=== PATIENT | male | born 2000 | race Two or more races ===

== ENCOUNTER 2022-04-25 11:08 | Outpatient (CLI) | payer OTHER ==
[2022-04-25 12:17] VITALS: BP 128/77
--- NOTE | 2022-04-25 12:17 | SLEEP CARE CONSULTATION ---
Information from patient questionnaire entered by Delicia Disla MA. I have reviewed and concur with the information entered by Delicia Disla MA. This document represents the service I personally performed and the decisions made by , Lary Dickerson ARNP. History of Present Illness Service Date and Time: 04/25/2022 1108 Reason for Visit: New patient (ONSET 10/07/2016, NO PRIORS,) Chief Complaint: reports: Insomnia, Unrefreshed sleep, Snoring, Observed pauses in breathing, Fatigue, Frequent awakenings at night Date of Onset: 2 YEARS AGO Usual bedtime: 0330 Time it takes to fall asleep: 30 - 1 HOUR Snores at night: Yes Observed to quit breathing while asleep: Yes Sleeps alone due to snoring: No Number of times waking at night: 1-2 Reasons for waking at night: reports: Gasping for air. denies: Choking, Snoring Toss, Turn, or Twitch while sleeping: Yes Recalls having dreams: No Usually gets out of bed at: 1100-NOON Feels refreshed in the morning: No Morning headache: Yes (every other day, groggy; last 1-1.5 hours) Sleepy or fatigued during the day: Yes Ever fallen asleep while driving: No Takes day naps: No Dreams during day naps: No Prior sleep studies: No Additional HPI information: I had the pleasure of seeing KIERAN BARTH today regarding the possibility of him having a sleep disorder. His current complaints are insomnia, snoring, unrefreshed sleep, observed pauses in breathing, fatigue and frequent night awakenings. 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 He was having a hard time falling asleep and would some times not sleep for a day or more. Since then his sleep schedule is still varied from 8 hour shifts to 12 hours shifts or more. He switches from days to nights. His roommates have told him that he snores loudly. His girlfriend has noted with occasional gasping/choking sounds while he is sleeping. He did wake up once where he sat up in bed and felt like he could not breathe, it cleared up quickly. - Parasomnia Symptoms Ever been unable to move upon waking from sleep: Yes (not frequent) Walks in sleep: No Talks in sleep: Yes (makes garbled noises, no words) Ever acted out dreams in sleep: No Ever felt weak in the knees when startled or emotional: No Bothered by creepy, crawly, restless sensations in legs: No Problems with memory or concentration: No Subjective Initial Cisne Sleepiness Scale score: 12 (04/25/2022) Past Medical History Past Medical History: reports: Other (enlarged heart vessel when about 11 yrs old, thoroughly checkd and monitored until resolved) Social History The patient's occupation is a AM. Patient is Single and lives in . Have you smoked in the past 12 months: Yes (smokes 1-2 cigarettes a month on average) Alcohol use: Yes Alcohol amount and frequency: 2-3 X WEEKLY Caffeine use: Yes Caffeine amount and frequency: 1 X DAILY Family History Family history of sleep disordered breathing: No Family Hx Sleep Apnea: Sibling: Snoring Allergies and Home Medications Known drug allergies: No Drug allergies reviewed: Yes (NKDA) Home medication list reviewed: Yes (no daily medications) Review of Systems Weight gain over past 5 years: 15 lbs Cardiovascular: reports: chest pain (pressures on chest almost every day) Respiratory: reports: shortness of breath Gastrointestinal: reports: heartburn Neurological: reports: headaches, head trauma (mild concussion after slip/fall 18 yo) Psychiatric: denies: anxiety, depression Ear/Nose/Throat: reports: nasal congestion, sinus problems, nose bleeds, dry mouth/throat. denies: tonsillectomy, wisdom teeth removed Musculoskeletal: reports: back pain Immunologic: denies: allergies to food or environment Physical Exam Vital signs obtained and entered by: Justine DISLA CMA AAHI Blood Pressure: 128/77 (RESP 20, PULSE 56, LEFT) Cuff size: wrist Heart Rate: 58 O2 Saturation: 98 (PAPER MASK) Height: 5 ft 3 in Weight: 180 lb (CLOTHES) Weight change since last visit: LOSE - GYM Body Mass Index: 31.8 BMI Classification: Obese Neck circumference: 15 (INCHES) Mouth and throat: narrow oropharynx Soft palate: normal Hard palate: normal Uvula: long Uvula visualization: 25% Mallampati Class III Tongue: enlarged in size with teeth romero on lateral edges Tonsils: 3+/kissing (on left) Neck: normal w/o lymphadenopathy or thyromegaly Heart: regular rate and rhythm Lungs: clear bilaterally Impression and Plan 1. Suspected Obstructive Sleep Apnea-Hypopnea Syndrome, as suggested by a history of loud and irregular snoring, observed cessation of breath while asleep, gasping or choking in sleep, morning headache, unrefreshed sleep, and excessive daytime sleepiness. Narrow oropharynx and obesity are common predisposing factors for obstructive sleep apnea-hypopnea syndrome. I recommend proceeding to polysomnography to confirm the diagnosis and to assess severity. If the patient has significant sleep disordered breathing, a manual CPAP titration study will also be performed to find the optimal treatment pressure. I informed the patient of what the sleep studies involve and after some discussion, obtained agreement to proceed. The pathophysiology of obstructive sleep apnea-hypopnea syndrome was discussed with the patient and health risks of cardiovascular and cerebrovascular disease if not treated. Risks of drowsy driving discussed in detail and patient advised to avoid long distance driving and to side puller at the first sign of drowsiness. Patient agreed to plan. * Schedule polysomnography * Avoid long distance driving or driving when feeling sleepy. * Avoid alcohol, sedative and muscle relaxant around bedtime. * Attempt to lose weight. * Review instructions provided by trained office staff on how to prepare for the sleep study. * Return for follow-up after sleep study completed. Counseling Topics: Weight loss health impact Visit Type: In Office Time Spent with Patient (minutes): 44 Provider Statement: I spent 100% of the Face to Face Visit with the patient with greater than 50% spent counseling the patient and coordination of care.
== END 2022-04-25 11:09 | disposition home or self-care (01) ==
LOC: SC 11:08
PROVIDERS: ATTEND Nurse Practitioner Family
DX: R06.83 Snoring (principal); R06.81 Apnea, not elsewhere classified; R51.9 Headache, unspecified; G47.10 Hypersomnia, unspecified; E66.9 Obesity, unspecified; Z68.31 Body mass index [BMI] 31.0-31.9, adult
CPT/HCPCS: 99203; 99212

== ENCOUNTER 2022-06-05 09:33 | Outpatient (CLI) | payer OTHER ==
[2022-06-05 10:01] VITALS: BP 116/76
--- NOTE | 2022-06-05 10:01 | SLEEP CARE CONSULTATION ---
Information from patient questionnaire entered by Delicia Sheriff MA. I have reviewed and concur with the information entered by Delicia Sheriff MA. This document represents the service I personally performed and the decisions made by Tuan gomez Caren J, ARNP. History of Present Illness Service Date and Time: 06/05/2022 0933 Initial Bronaugh Sleepiness Scale score: 12 (04/25/2022) Current Bronaugh Sleepiness Scale score: 17 (06/05/2022) Additional HPI information: KIERAN BARTH returns for follow up and results of the recently performed home sleep study. The patient was informed of the following findings: No significant sleep disord ered breathing with an average AHI of 4.0 and ildefonso oxygen saturation of 83%. Patient did not sleep supine during the study. I explained the pathophysiology behind obstructive sleep apnea. Patient does not have sleep apnea and was advised how weight gain could increase the risk of developing sleep apnea in the future. Sleep Study - Results Type of Sleep Study: Home sleep study (F/U HST, 05/08/2022 [facility], [place],) Prior sleep studies: No Polysomnography/Home Sleep Study results: Physician Impression: The quality of the study is good. The length of the study is adequate (> 240 minutes). Please also see the tabulated and graphic data. 1. Obstructive Sleep Apnea-Hypopnea (ICD-10 G47.33), none, with an AHI of 4.0/hr and ildefonso SaO2 of 83%. During the study, the patient had 12 apneas (11 obstructive, 0 central, 1 mixed) and 16 hypopneas. The longest episode lasted 76.5 seconds. The patient did not sleep supine during this study. 2. Hypoxemia (ICD-10 R09.02), minimal, with the lowest oxygen saturation of 83 % and 0.9 minutes with SaO2 under 90%. Baseline oxygen saturation was normal (Average oxygen saturation was 96%). Allergies and Home Medications Known drug allergies: No (NKA) Drug allergies reviewed: Yes Home medication list reviewed: Yes (no changes) Allergy and home medication list: NKA VERIFIED BY ALEX CM 06/05/2022 9030 Review of Systems Review of systems same as previous: Yes (no changes) Physical Exam Vital signs obtained and entered by: L. Sharita, [employer] AAMA Blood Pressure: 116/76 (R 16, P 49, RIGHT) Cuff size: wrist Heart Rate: 51 O2 Saturation: 98 Height: 5 ft 3 in Weight: 170 lb (CLOTHES) Body Mass Index: 30.1 BMI Classification: Obese Impression and Plan 1. Suspected Obstructive Sleep Apnea-Hypopnea Syndrome, as suggested by a history of loud and irregular snoring, observed cessation of breath while asleep, gasping or choking in sleep, morning headache, frequent awakening during the night, unrefreshed sleep, cognitive impairment, and excessive daytime sleepiness. I recommend proceeding to polysomnography to confirm the diagnosis and to assess severity. If the patient has significant sleep disordered breathing, a manual CPAP titration study will also be performed to find the optimal treatment pressure. I informed the patient of what the sleep studies involve and after so me discussion, obtained agreement to proceed. The pathophysiology of obstructive sleep apnea-hypopnea syndrome was discussed with the patient and health risks of cardiovascular and cerebrovascular disease if not treated. Risks of drowsy driving discussed in detail and patient advised to avoid long distance driving and to caul fat puller at the first sign of drowsiness. Patient agreed to plan. * Schedule polysomnography * Avoid long distance driving or driving when feeling sleepy. * Avoid alcohol, sedative and muscle relaxant around bedtime. * Attempt to lose weight. * Review instructions provided by trained office staff on how to prepare for the sleep study. * Return for follow-up after sleep study completed. Counseling Topics: Weight loss health impact Visit Type: In Office Time Spent with Patient (minutes): 16 Provider Statement: I spent 100% of the Face to Face Visit with the patient with greater than 50% spent counseling the patient and coordination of care.
== END 2022-06-05 09:34 | disposition home or self-care (01) ==
LOC: SC 09:33
PROVIDERS: ATTEND Nurse Practitioner Family
DX: R06.83 Snoring (principal); G47.8 Other sleep disorders; R06.81 Apnea, not elsewhere classified; R51.9 Headache, unspecified; G47.10 Hypersomnia, unspecified; E66.9 Obesity, unspecified; Z68.30 Body mass index [BMI] 30.0-30.9, adult
CPT/HCPCS: 99212

== ENCOUNTER 2022-06-07 19:52 | Outpatient (CLI) | payer OTHER | END 2022-06-07 19:53 | disposition home or self-care (01) | LOC: SC 19:52 | PROVIDERS: ATTEND Nurse Practitioner Family | DX: G47.33 Obstructive sleep apnea (adult) (pediatric) (principal); Z68.31 Body mass index [BMI] 31.0-31.9, adult | CPT/HCPCS: 95810 ==

== ENCOUNTER 2022-06-24 23:41 | Emergency (ER) | payer OTHER ==
[2022-06-24 23:55] VITALS: BP 133/90
[2022-06-25] MEDS ORDERED: HYDROcod/ACETAM 5/325 MG TABLET ONE (02:10)
[2022-06-25] MEDS ORDERED: HYDROcod/ACET 5/325 Prepack 4 PO ONE (02:33)
--- NOTE | 2022-06-25 03:52 | ED Physician Documentation ---
PD HPI BACK PAIN - Stated complaint Stated Complaint: BACK PX - Chief complaint Chief Complaint: Back Pain - History obtained from History obtained from: Patient - History of Present Illness Timing - onset: How many days ago (3) Timing - duration: Days (3) Timing - details: Abrupt onset, Still present Location: Lower (sacral and tailbone area. Not in lumbar.), Right, Left Quality: Pain, Aching Associated symptoms: Incontinent of urine. No: Fever, Weakness, Numbness Improves with: Position (sitting on one butttock side.) Worsened by: Movement, Palpation, Other (sitting) Contributing factors: Trauma (he states slid and fell directly to tailbone area. pain in tailbone with sitting and walking. Also sacral and SI area pain with movment and standing.) Similar symptoms before: Has not had sx before Recently seen: Not recently seen Review of Systems Constitutional: denies: Fever, Chills : reports: Testicular pain (feel pain goes to left testicle at times.). denies: Hematuria, Testicular mass Skin: denies: Abrasion (s), Laceration (s) (s) Neurologic: denies: Focal weakness, Numbness PD PAST MEDICAL HISTORY - Past Medical History Cardiovascular: None Respiratory: None Neuro: None Endocrine/Autoimmune: None - Present Medications Home Medications: Ambulatory Orders Medication Instructions Recorded Confirmed No Known Home Medications 06/24/22 06/24/22 - Allergies Allergies/Adverse Reactions: Allergies Allergy/AdvReac Type Severity Reaction Status Date / Time No Known Drug Allergies Allergy Verified 06/24/22 23:54 PD ED PE NORMAL - Vitals Vital signs reviewed: Yes - General General: Alert and oriented X 3, Well developed/nourished, Other (he is sitting leaning to left gluteal to avoid pressure on tailbone.) - Abdomen Abdomen: Soft, Non tender - Male Male : Other (normal lie and cremaster. testicles symmetric. Mild tender left upper epididymal area without swelling/enlargement. ) - Back Back: Other (no tenderness lumbar area. He is tender in sacral part of pelvis and toward the SI joints, as well as markedly tender at coccygeal area. No swellling nor redness. ) - Derm Derm: Normal color, Warm and dry Results - Vitals Vitals: Vital Signs - 24 hr 06/24/22 23:52 Temperature 36.4 C L Heart Rate 63 Respiratory 18 Rate Blood Pressure 133/90 H O2 Saturation 99 Oxygen O2 Source Room air - Rads (name of study) pelvic CT Radiology: Prelim report reviewed (no fractures), See rad report PD MEDICAL DECISION MAKING - ED course Complexity details: reviewed results, considered differential (he has pain at tailbone but also sacrum and SI area, which would be more concerning as nerve roots from the area. Will get CT to ensure no fx/displacement.), d/w patient Departure - Departure Disposition: 01 Home, Self Care Condition: Stable Record reviewed to determine appropriate education?: Yes Discharge Date/Time: 06/25/22 02:25
--- NOTE | 2022-06-25 04:09 | CT Report ---
PROCEDURE: PELVIS WO INDICATIONS: SACRAL PAIN, FALL TECHNIQUE: Noncontrast 3 mm axial sections acquired through the bony pelvis, with coronal and sagittal reformatt ing. For radiation dose reduction, the following was used: automated exposure control, adjustment of mA and/or kV according to patient size. COMPARISON: None. FINDINGS: Image quality: Excellent. Bones: No fractures or dislocation. No suspicious osseous lesions. Soft tissues: There is mild subcutaneous fat stranding and edema superficial to the sacrum. No discr ete hematoma collections. No intracranial free fluid. The visualized musculature appears preserved. IMPRESSION: 1. No sacral fracture identified. Findings discussed with Dr. Cintron on 06/25/2022 at 2:10 AM. Reviewed by: Landon Gordillo MD on 06/25/2022 4:07 AM PDT Approved by: Landon Gordillo MD on 06/25/2022 4:07 AM PDT Station ID: [id number]
== END 2022-06-25 02:25 | disposition home or self-care (01) ==
LOC: ED 23:41
DX: S30.0XXA Contusion of lower back and pelvis, initial encounter (principal); W01.0XXA Fall on same level from slipping, tripping and stumbling without subsequent striking against object, initial encounter
CPT/HCPCS: 72192; 99282; 99284; A9270

== ENCOUNTER 2022-06-29 11:03 | Outpatient (CLI) | payer OTHER ==
[2022-06-29 11:38] VITALS: BP 118/76
--- NOTE | 2022-06-29 11:38 | SLEEP CARE CONSULTATION ---
Information from patient questionnaire entered by Petey Guzman. I have reviewed and concur with the information entered by Petey Guzman. This document represents the service I personally performed and the decisions made by , Lary Dickerson ARNP. History of Present Illness Service Date and Time: 06/29/2022 1103 Initial Norman Sleepiness Scale score: 12 (04/25/2022) Current Norman Sleepiness Scale score: 16 (06/29/22) Additional HPI information: KIERAN BARTH returns for follow up and results of the recently performed polysomnography. I explained the pathophysiology behind obstructive sleep apnea. We then spent quite a bit of time discussing different treatment options. For mild obstructive sleep apnea, surgery and oral appliance are alternatives to nasal CPAP therapy but in moderate or severe cases, nasal CPAP is the most effective and reliable treatment. Because apnea is primarily in supine position, then positional management therapy could be effective. Methods discussed such as positioning with pillows to prevent supine sleep. I reviewed the impact of weight changes on sleep apnea and strongly recommended losing weight. After some discussion, the patient opted to go with the nasal CPAP therapy. Nasal autoCPAP set at 4-15 cmH20 will be ordered with rationale explained. A manual titration study will be ordered if unable to find optimal pressure with office adjustments. I explained how CPAP machine works and what to expect when using the machine. Using CPAP every night in order to get used to it was emphasized. Patient advised to put CPAP mask on before getting into bed so as not to fall asleep without CPAP. To assist acclimation to CPAP use, it could also be used for a short time during day while reading or watching TV. The patient was instructed to call the CPAP supplier to discuss any mechanical problem that may occur. If the mask given is uncomfortable or is difficult to keep on through the night even with adjustment, contact the CPAP supplier as many will replace with another mask style if notified before 30 days. If snoring or perceives is not getting enough air or too much air from the machine, notify this office. Patient does not drink alcohol. Patient was cautioned about risks of drowsy driving until sleepiness symptoms resolve. Sleep Study - Results Type of Sleep Study: Polysomnography (DONE 06/07/22) Prior sleep studies: No Polysomnography/Home Sleep Study results: IMPRESSION: The quality of the study is good. The patient had normal sleep efficiency. Except for mild sleep fragmentation, the sleep architecture was also normal. Respiratory monitoring showed moderate obstructive sleep apnea-hypopnea (AHI = 17.0) associated with frequent arousals, oxyhemoglobin desaturation and mild hypoxia (ildefonso oxygen saturation of 84%). The respiratory events occurred mainly during sleep study (supine AHI = 18.6; non-supine = 9.20). Snore was light to moderate in intensity. There was no significant periodic leg movement of sleep. Cardiac rhythm was normal sinus rhythm without significant arrhythmia. No abnormal behavior (parasomnia) observed during the night. Allergies and Home Medications Drug allergies reviewed: Yes (NKDA) Home medication list reviewed: Yes (Hydrocodone for pain) Allergy and home medication list: Allergies No Known Drug Allergies Allergy (Verified 06/24/22 23:54) Review of Systems Review of systems same as previous: Yes (pelvic muscle sprain after fall) Physical Exam Vital signs obtained and entered by: ADELINE NICHOLS Blood Pressure: 118/76 (left arm ) Cuff size: regular Heart Rate: 55 O2 Saturation: 98 Height: 5 ft 3 in Weight: 176 lb Body Mass Index: 31.1 BMI Classification: Obese Impression and Plan 1. Obstructive Sleep Apnea-Hypopnea Syndrome, moderate, with lowest oxygen saturation of 84%. Obviously this is the cause of the patients symptoms of unrefreshed sleep, and excessive daytime sleepiness. As mentioned above, the patient will be started on nasal autoCPAP therapy with pressure set at 4-15 cmH2 O. A manual titration study will be completed if unable to find optimal treatment pressure with office adjustments. Compliance guidelines also reviewed. A copy of compliance guidelines will be given for reference at check out. Because the apnea is more severe supine, I instructed to avoid sleeping supine using pillow positioning until able to start CPAP use. * Nasal auto CPAP therapy, pressure at 4-15 cm H2O. * Attempt to lose weight. * Avoid alcohol consumption near bedtime. * Avoid supine sleep until using CPAP. * The patient is again cautioned about driving until sleepiness completely reso lves. * Return one month after CPAP obtained. I will assess response to therapy and compliance at that time. Counseling Topics: Weight loss health impact Visit Type: In Office Time Spent with Patient (minutes): 20 Provider Statement: I spent 100% of the Face to Face Visit with the patient with greater than 50% spent counseling the patient and coordination of care.
== END 2022-06-29 11:04 | disposition home or self-care (01) ==
LOC: SC 11:03
PROVIDERS: ATTEND Nurse Practitioner Family
DX: G47.33 Obstructive sleep apnea (adult) (pediatric) (principal); E66.9 Obesity, unspecified; Z68.31 Body mass index [BMI] 31.0-31.9, adult
CPT/HCPCS: 99212; 99213

== ENCOUNTER 2023-09-18 20:49 | Outpatient (CLI) | payer OTHER | END 2023-09-18 20:50 | disposition critical access hospital (66) | LOC: EMS 20:49 | DX: M54.6 Pain in thoracic spine (principal); M54.50 Low back pain, unspecified; M79.605 Pain in left leg; M79.604 Pain in right leg; R20.2 Paresthesia of skin | CPT/HCPCS: A0425; A0427 ==

== ENCOUNTER 2023-09-18 21:15 | Emergency (ER) | payer OTHER ==
[2023-09-18 21:31] VITALS: O2SAT 99
--- NOTE | 2023-09-18 21:57 | ED Physician Documentation ---
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 patient denies specific trauma. does endorse some numbness earlier to extremities but now resolved. denies saddle anesthesia, weakness, urinary or fecal incontinence or retention PD PAST MEDICAL HISTORY - Past Medical History Past Medical History: Yes Cardiovascular: None Respiratory: None Neuro: None Endocrine/Autoimmune: None GI: None : None HEENT: None Psych: None Musculoskeletal: Chronic back pain Derm: None - Past Surgical History Past Surgical History: Yes Ortho: Other - Present Medications Home Medications: Ambulatory Orders Medication Instructions Recorded Confirmed No Known Home Medications 06/24/22 09/18/23 - Allergies Allergies/Adverse Reactions: Allergies Allergy/AdvReac Type Severity Reaction Status Date / Time No Known Drug Allergies Allergy Verified 09/18/23 21:26 - Social History Does the pt smoke?: No Smoking Status: Never smoker Does the pt drink ETOH?: No Does the pt have substance abuse?: No - Immunizations Immunizations are current?: Yes - POLST Patient has POLST: No PD ED PE NORMAL - Vitals Vital signs reviewed: Yes - General General: Alert and oriented X 3, No acute distress, Well developed/nourished - HEENT HEENT: Atraumatic, PERRL, EOMI - Neck Neck: No bony TTP - Back Back: No spinal TTP, Other (BL paraspinal muscles discomfort to palpation) - Extremities Extremities: Other (BL knees discomfort to palpation and discomfort with rom. FROM at BL hips and knees. csm intact BL LE) - Neuro Neuro: No motor deficit, No sensory deficit Results - Vitals Vitals: Vital Signs - 24 hr 09/18/23 21:22 Temperature 36.4 C L Heart Rate 63 Respiratory 17 Rate Blood Pressure 136/82 H O2 Saturation 99 Oxygen O2 Source Room air PD Medical Decision Making - ED course ED course: 23yM with pmh chronic back pain presents with back pain, hip, and knee pain today without red flag signs for spinal cord impingement. likely muscle strain. work note provided per request and patient will f/u with pcm. return precautions given. Departure - Departure Disposition: 01 Home, Self Care Clinical Impression: Chronic back pain, Knee pain, Hip pain Condition: Stable Instructions: ED Back Care Tips Comments: You were seen in the emergency department for back pain, knee pain and hip pain. Please follow-up with your primary care provider and return to the emergency department if you have any new or worsening symptoms or other concerns. Forms: PCP List, Activity restrictions
[2023-09-18 22:36] VITALS: BP 134/86
== END 2023-09-18 22:29 | disposition home or self-care (01) ==
LOC: EDUNIT# → ED 21:15
DX: M54.50 Low back pain, unspecified (principal); M54.6 Pain in thoracic spine; M25.562 Pain in left knee; M25.561 Pain in right knee; M25.552 Pain in left hip; M25.551 Pain in right hip; G89.29 Other chronic pain
CPT/HCPCS: 99283

== ENCOUNTER 2023-10-17 07:58 | Outpatient (CLI) | payer OTHER ==
--- NOTE | 2023-10-17 21:13 | XRAY Report ---
PROCEDURE: Chest 2V INDICATIONS: WHEEZING TECHNIQUE: 2 views of the chest were acquired. COMPARISON: None. FINDINGS: Surgical changes and devices: None. Lungs and pleura: No pleural effusions or pneumothorax. Increased bronchovascular markings in bilate ral hilar region are seen with mild bronchial wall thickening. No definite focal infiltrate. Mediastinum: Mediastinal contours appear normal. Heart size is normal. Bones and chest wall: No suspicious bony lesions. Overlying soft tissues appear unremarkable. IMPRESSION: Suggestion of reactive airway disease such as bronchiolitis or asthma. No definite focal infiltrate. No pleural effusion or pneumothorax. Reviewed by: Heriberto Cardenas MD on 10/17/2023 9:12 PM PST Approved by: Heriberto Cardenas MD on 10/17/2023 9:12 PM PST Station ID: [id number]
== END 2023-10-17 07:59 | disposition home or self-care (01) ==
LOC: DI.N 07:58
PROVIDERS: ATTEND Nurse Practitioner
DX: R06.2 Wheezing (principal)